=== PATIENT | female | born 1960 ===

== ENCOUNTER 2021-02-20 15:47 | Emergency (ER) | payer MEDICARE ==
[2021-02-20 16:54] VITALS: BP 154/112
[2021-02-20] MEDS ORDERED: dexAMETHasone 20 MG/5 ML VIAL IM ONE (17:46)
[2021-02-20] MEDS ORDERED: hydrOXYzine HCL 25 MG TAB PO ONE (17:46)
--- NOTE | 2021-02-20 17:58 | Emergency Department Report ---
- General Chief complaint: Skin Rash Stated complaint: ALLERGIC REACTION Time Seen by Provider: 02/20/21 17:40 Source: patient Mode of arrival: Ambulatory Limitations: No Limitations - History of Present Illness Initial comments: Patient is a 61-year-old female presents emergency room with complaints of a rash that began approximately 2 months ago. Patient states a few years ago she had an allergy test performed and states that she has multiple environmental and food allergies. She denies any medication allergies. She denies any new soaps, lotions, detergents, medications, anything new that she is aware of. She states that she also has itching around her eyes. She denies any fever, nausea, vomiting, diarrhea, shortness of breath, abdominal pain, eye pain, vision snyder ges, eye drainage. She states that she went to an urgent care and was prescribed a Medrol Dosepak but was not prescribed any steroid ointment or anything for the itching. She states that she has a history of chronic dermatitis in the past. 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 02/20/21 16:49 Abscess Boil HPI - HPI Chief Complaint: Skin Rash Stated Complaint: ALLERGIC REACTION Time Seen by Provider: 02/20/21 17:40 Home Medications: Previous Rx's Medication Instructions Recorded Last Taken Type Prednisone [predniSONE 10 mg 10 mg PO .TAPER #1 tab.ds.pk 02/20/21 Unknown Rx (6-Day Pack, 21 Tabs)] Triamcinolone 0.1% [Kenalog 0.1% 1 applic TP TID #80 gm 02/20/21 Unknown Rx CREAM] hydrOXYzine HCL [Atarax] 25 mg PO Q6HR PRN #30 tablet 02/20/21 Unknown Rx Allergies/Adverse Reactions: Allergies Allergy/AdvReac Type Severity Reaction Status Date / Time 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 Verified 02/20/21 16:49 ED Review of Systems ROS: Stated complaint: ALLERGIC REACTION Other details as noted in HPI Comment: All other systems reviewed and negative ED Past Medical Hx - Past Medical History Additional medical history: HEART PROBLEMS - Surgical History Additional Surgical History: KNEE X2/ UTERINE SURGERY - Medications Home Medications: Home Medications Medication Instructions Recorded Confirmed Last Taken Type Prednisone [predniSONE 10 mg 10 mg PO .TAPER #1 tab.ds.pk 02/20/21 Unknown Rx (6-Day Pack, 21 Tabs)] Triamcinolone 0.1% [Kenalog 0.1% 1 applic TP TID #80 gm 02/20/21 Unknown Rx CREAM] hydrOXYzine HCL [Atarax] 25 mg PO Q6HR PRN #30 tablet 02/20/21 Unknown Rx ED Physical Exam - General Limitations: No Limitations General appearance: alert, in no apparent distress - Head Head exam: Present: atraumatic, normocephalic - Eye Eye exam: Present: PERRL, EOMI. Absent: conjunctival injection Pupils: Present: normal accommodation - ENT ENT exam: Present: mucous membranes moist - Respiratory Respiratory exam: Absent: respiratory distress, accessory muscle use - Neurological Exam Neurological exam: Present: alert, oriented X3 - Psychiatric Psychiatric exam: Present: normal affect, normal mood - Skin Skin exam: Present: warm, dry, rash (erythematous maculopapular rash present to the flexor surfaces of the elbows and anterior neck, no blistering, no skin denuding, no drainage ) ED Course Vital Signs 02/20/21 02/20/21 16:48 19:32 Temperature 97.9 F Pulse Rate 92 H 66 Respiratory 17 16 Rate Blood Pressure 154/112 O2 Sat by Pulse 97 98 Oximetry ED Medical Decision Making - Medical Decision Making Patient is a 61-year-old female presents emergency room with complaints of a rash that began approximately 2 months ago. Patient states a few years ago she had an allergy test performed and states that she has multiple environmental and food allergies. She denies any medication allergies. She denies any new soaps, lotions, detergents, medications, anything new that she is aware of. She states that she also has itching around her eyes. She denies any fever, nausea, vomiting, diarrhea, shortness of breath, abdominal pain, eye pain, vision changes, eye drainage. She states that she went to an urgent care and was prescribed a Medrol Dosepak but was not prescribed any steroid ointment or anything for the itching. She states that she has a history of chronic dermatitis in the past. On exam:erythematous maculopapular rash present to the flexor surfaces of the elbows and anterior neck, no blistering, no skin denuding, no drainage. Examination appears likely consistent with a dermatitis. Patient given prescription for medications. Patient will be referred to a hat braider. Advised patient Please use medication as prescribed. Follow-up with a hat braider. Return to emergency room for any new or worsening symptoms. Critical care attestation.: If time is entered above; I have spent that time in minutes in the direct care of this critically ill patient, excluding procedure time. ED Disposition Clinical Impression: Rash Disposition: 01 HOME / SELF CARE / HOMELESS Is pt being admited?: No Does the pt Need Aspirin: No Condition: Stable Instructions: Contact Dermatitis, [id number] Additional Instructions: Please use medication as prescribed. Follow-up with a hat braider. Return to emergency room for any new or worsening symptoms. hat braider: Teddy Buregina Doc Address: [address] [place] [address] Jose Farrell MD Address: [address] [place] [address] Dr. Young Hsu Address: [address] [place] [address] [id number], [place] [address] Prescriptions: hydrOXYzine HCL [Atarax] 25 mg PO Q6HR PRN #30 tablet PRN Reason: Itching Triamcinolone 0.1% [Kenalog 0.1% CREAM] 1 applic TP TID #80 gm Prednisone [predniSONE 10 mg (6-Day Pack, 21 Tabs)] 10 mg PO .TAPER #1 tab.ds.pk Referrals: a, hat braider [Other] - 2-3 Days Time of Disposition: 17:54 Print Language: YAKUT
== END 2021-02-20 19:31 | disposition home or self-care (01) ==
LOC: ED 15:47
DX: R21 Rash and other nonspecific skin eruption (principal)
CPT/HCPCS: 99282; J1100